=== PATIENT | female | born 1995 | race Caucasian/White ===

== ENCOUNTER 2024-08-23 15:14 | Emergency (ER) | payer BC ==
[2024-08-23 15:20] VITALS: TEMP 98.2
[2024-08-23] MEDS: KETOROLAC 15 MG/ML 1 ML VIAL IM STA (16:18)
--- NOTE | 2024-08-23 16:20 | ED ---
Abdominal Pain HPI - General Source: patient, RN notes reviewed, old records reviewed Mode of arrival: ambulatory Limitations: no limitations <Riky Noble - Last Filed: 08/23/24 19:02> <Chip Mancera - Last Filed: 08/23/24 23:55> - General Chief Complaint: Abdominal Pain Stated Complaint: Pelvic Pain Time Seen by Provider: 08/23/24 15:20 - History of Present Illness Initial Comments: 28-year-old female presents with complaints of abdominal/pelvic/vaginal pain. Of note patient has an extensive history of kidney stones requiring 3 lithotripsies in the last 7 years and accumulating a total of 7 stones over that time. Patient's pain started approximately a week ago which initially felt like some pelvic and vaginal pain at that time she noticed her IUD strings hanging out of her vagina and upon further investigation found that some of the IUD was sticking out of the cervix so decided to remove the IUD at that time. States she could not tell if she was having any vaginal spotting as she was on her period at that time. Reports after that she started having some difficulty with urination, stating she would have some burning sensation when she pees especially at the end of urination, and would also have some urgency. States she is also having some flank pain especially on the left. Earlier today with all of her symptoms still going on she decided to go to urgent care for further evaluation, states they did a UA there which showed blood in the urine but no bacteria. Reports they tried to do a pelvic exam but she was in so much pain so she could not tolerate it. Reports that she was then recommended by urgent care to come to the emergency department for further evaluation. (Riky Noble) - Related Data Previous Rx's Medication Instructions Recorded Ketorolac [Toradol] 10 mg PO Q6HR #12 tab 08/23/24 Tamsulosin [Flomax] 0.4 mg PO DAILY #5 cap 08/23/24 Allergies Allergy/AdvReac Type Severity Reaction Status Date / Time No Known Allergies Allergy Verified 08/23/24 15:20 Review of Systems ROS Other: All systems not noted in ROS Statement are negative. <Riky Noble - Last Filed: 08/23/24 19:02> ROS Other: All systems not noted in ROS Statement are negative. <Chip Mancera - Last Filed: 08/23/24 23:55> ROS Statement: Those systems with pertinent positive or pertinent negative responses have been documented in the HPI. Past Medical History Past Medical History: No Reported History History of Any Multi-Drug Resistant Organisms: None Reported Past Surgical History: Tonsillectomy Additional Past Surgical History / Comment(s): lithotripsy Past Psychological History: Anxiety, Depression Smoking Status: Never smoker Past Alcohol Use History: None Reported Past Drug Use History: None Reported <Riky Noble - Last Filed: 08/23/24 19:02> General Exam Limitations: no limitations <Riky Noble - Last Filed: 08/23/24 19:02> - General Exam Comments Initial Comments: GENERAL: In no apparent distress at the time of examination. Pleasant and cooperative. HEENT: Head is atraumatic, normocephalic. Pupils are equal, round, and reactive to light. Sclerae anicteric. Conjunctivae are clear. Mucus membranes of the mouth are moist. Neck is supple. RESPIRATORY: Clear to auscultation. No wheezes, rales, or rhonchi. No use of accessory muscles. Patient maintaining oxygen saturation greater than 92%. No chest wall tenderness is noted on palpation or with deep breathing. CARDIOVASCULAR: Regular rate and rhythm. S1 and S2 noted. No systolic or diastolic murmur auscultated. No JVD noted. No S3 or S4 noted. GASTROINTESTINAL: No distention noted. Abdomen soft and round. Normal active bowel sounds auscultated x 4 quadrants. No pain or tenderness noted upon palpation. INTEGUMENTARY: No cyanosis. No jaundice. No rashes noted. No cellulitis noted. EXTREMITIES: 2+ peripheral pulses. No evidence of peripheral edema. No calf tenderness noted. NEUROLOGIC: Cranial nerves II-XII intact. PSYCHIATRIC: Awake, alert, and oriented X 3. Appropriate affect. Intact judgement and insight. (Riky Noble) Course Vital Signs 08/23/24 08/23/24 08/23/24 15:15 16:20 20:22 Temperature 98.2 F 98.2 F Pulse Rate 63 64 89 Respiratory 18 16 18 Rate Blood Pressure 136/85 125/73 104/66 O2 Sat by Pulse 95 98 98 Oximetry Medical Decision Making - Lab Data Result diagrams: 08/23/24 16:05 08/23/24 16:05 <Riky Noble - Last Filed: 08/23/24 19:02> - Lab Data Result diagrams: 08/23/24 16:05 08/23/24 16:05 <Chip Mancera - Last Filed: 08/23/24 23:55> - Medical Decision Making Was pt. sent in by a medical professional or institution (, PA, FRINGING MACHINE OPERATOR, urgent care, hospital, or skilled nursing...) When possible be specific @ -Yes, urgent care. Did you speak to anyone other than the patient for history (EMS, parent, family, police, friend...)? What history was obtained from this source @ -No Did you review nursing and triage notes (agree or disagree)? Why? @ -I reviewed and agree with nursing and triage notes Were old charts reviewed (outside hosp., previous admission, EMS record, old EKG, old radiological studies, urgent care reports/EKG's, skilled nursing records)? Report findings @ -No old charts were reviewed Differential Diagnosis? @ -Differential Abdominal Pain Women: Appendicitis, Cholecystitis, diverticulosis, ischemic bowel, pancreatitis, hepatitis, UTI, gastroenteritis, AAA, incarcerated hernia, bowel obstruction, constipation, inflammatory bowel, hepatitis, peptic ulcer disease, splenic infarction, perforated viscus, vulvitis, ovarian torsion, PID, kidney stone, placenta abruption, this is not meant to be an all-inclusive list EKG interpreted by me (3pts min.). @ -As above X-rays interpreted by me (1pt min.). @ -None done CT interpreted by me (1pt min.). @ -Mild left hydroureteronephrosis with an obstructing 5 mm calculi at the uterovesical junction, right ovarian cystic lesion, cholelithiasis U/S interpreted by me (1pt. min.). @ -None done What testing was considered but not performed or refused? (CT, X-rays, U/S, labs)? Why? @ -None What meds were considered but not given or refused? Why? @ -None Did you discuss the management of the patient with other professionals (robert haynes i.e. , PA, FRINGING MACHINE OPERATOR, lab, RT, psych nurse, clinical social worker, account management assistant, teacher, safety patrol officer, case folder)? Give summary @ -No Was smoking cessation discussed for >3mins.? @ -No Was critical care preformed (if so, how long)? @ -No Were there social determinants of health that impacted care today? How? (Homelessness, low income, unemployed, alcoholism, drug addiction, transportation, low edu. Level, literacy, decrease access to med. care, custodial, rehab)? @ -No Was there de-escalation of care discussed even if they declined (Discuss DNR or withdrawal of care, Hospice)? DNR status @ -No What co-morbidities impacted this encounter? (DM, HTN, Smoking, COPD, CAD, Cancer, CVA, ARF, Chemo, Hep., AIDS, mental health diagnosis, sleep apnea, morbid obesity)? @ -None Was patient admitted / discharged? Hospital course, mention meds given and route, prescriptions, significant lab abnormalities, going to OR and other pertinent info. @ -Discharge, 28-year-old female presenting with complaints of abdominal and pelvic pain. Within the last week patient had removed her IUD which had been dislodged. Patient also has a significant history of kidney stones in the past. Patient was sent here from urgent care due to the symptoms she was experiencing and they not being able to do a pelvic exam and fully evaluate the patient. Patient underwent CT abdomen pelvis with contrast showing obstructing 5 mm calculi at the uterovesical junction on the left. Patient also underwent lab work which was within normal limits. A female provider was able to successfully perform a pelvic exam which showed no abnormalities. Patient is being discharged and advised to follow-up with her PCP, establish with urology, and establish with [employer]. Undiagnosed new problem with uncertain prognosis? @ -No Drug Therapy requiring intensive monitoring for toxicity (Heparin, Nitro, Insulin, Cardizem)? @ -No Were any procedures done? @ -No Diagnosis/symptom? @ -Nephrolithiasis Acute, or Chronic, or Acute on Chronic? @ -Acute on chronic Uncomplicated (without systemic symptoms) or Complicated (systemic symptoms)? @ -Default Side effects of treatment? @ -No Exacerbation, Progression, or Severe Exacerbation? @ -No Poses a threat to life or bodily function? How? (Chest pain, [place], [place], pneumonia, PE, COPD, DKA, ARF, appy, cholecystitis, CVA, Diverticulitis, Homicidal, Suicidal, threat to staff... and all critical care pts) @ -No (Riky Noble) I personally saw the patient and performed the critical portion of the service. I discussed the patient care with the resident. I directed management, care planning and final disposition of the patient. This includes, but not limited to, review of all lab work, radiological studies, EKG's, consultations, vital signs, and nursing notes. EKG interpreted by me (3pts min.) @None done X-Rays interpreted by me (1 pt min.) @None CT interpreted by me ( 1pt min.) @CT shows ureterolithiasis at 5 mm in size.. Mild left-sided hydronephrosis. Patient also has a right ovarian cystic lesion. U/S interpreted by me (1 pt min.) @None pelvic exam completed by assisting midlevel provider which was unremarkable. No discharge or bleeding. No obvious findings. No concern for STDs or STI. (Chip Mancera) - Lab Data Lab Results 08/23/24 08/23/24 08/23/24 Range/Units 16:02 16:05 16:05 WBC 9.10 (4.50-10.00) 10*3/uL RBC 4.59 (4.10-5.20) 10*6/uL Hgb 13.9 (12.0-15.0) g/dL Hct 41.1 (37.2-46.3) % MCV 89.5 (80.0-97.0) fL MCH 30.3 (27.0-32.0) pg MCHC 33.8 (32.0-37.0) g/dL Plt Count 305 (140-440) 10*3/uL MPV 10.6 (9.5-12.2) fL Immature Gran % (Auto) 0.2 % Neutrophils % 65.4 % Lymphocytes % 26.3 % Monocytes % 5.6 % Eosinophils % 2.3 % Basophils % 0.2 % Immature Gran # 0.02 (0.00-0.04) 10*3/uL Neutrophils # 5.95 (1.80-7.70) 10*3/uL Lymphocytes # 2.39 (0.90-5.00) 10*3/uL Monocytes # 0.51 (0.20-1.00) 10*3/uL Eosinophils # 0.21 (0.04-0.35) 10*3/uL Basophils # 0.02 (0.00-0.10) 10*3/uL Sodium 139 (137-145) mmol/L Potassium 4.4 (3.5-5.1) mmol/L Chloride 106 (98-107) mmol/L Carbon Dioxide 25 (22-30) mmol/L Anion Gap 8 mmol/L BUN 11 (7-17) mg/dL Creatinine 0.77 (0.52-1.04) mg/dL Est GFR (CKD-EPI)AfAm >90 (>60 ml/min/1.73 sqM) Est GFR (CKD-EPI)NonAf >90 (>60 ml/min/1.73 sqM) Glucose 97 (74-99) mg/dL Plasma Lactic Acid Khanh (0.7-2.0) mmol/L Calcium 9.6 (8.4-10.2) mg/dL Total Bilirubin 0.4 (0.2-1.3) mg/dL AST 38 H (14-36) U/L ALT 37 H (4-34) U/L Alkaline Phosphatase 77 (38-126) U/L Total Protein 7.4 (6.3-8.2) g/dL Albumin 4.5 (3.5-5.0) g/dL HCG, Qual Not Detected Urine Color Light Yellow Urine Appearance Clear (Clear) Urine pH 6.5 (5.0-8.0) Ur Specific [place] 1.016 (1.001-1.035) Urine Protein Negative (Negative) Urine Glucose (UA) Negative (Negative) Urine Ketones Negative (Negative) Urine Blood Trace H (Negative) Urine Nitrite Negative (Negative) Urine Bilirubin Negative (Negative) Urine Urobilinogen <2.0 (<2.0) mg/dL Ur Leukocyte Esterase Negative (Negative) Urine RBC 8 H (0-5) /hpf Urine WBC 4 (0-5) /hpf Ur Squamous Epith Cells <1 (0-4) /hpf Urine Mucus Rare H (None) /hpf 08/23/24 Range/Units 16:05 WBC (4.50-10.00) 10*3/uL RBC (4.10-5.20) 10*6/uL Hgb (12.0-15.0) g/dL Hct (37.2-46.3) % MCV (80.0-97.0) fL MCH (27.0-32.0) pg MCHC (32.0-37.0) g/dL Plt Count (140-440) 10*3/uL MPV (9.5-12.2) fL Immature Gran % (Auto) % Neutrophils % % Lymphocytes % % Monocytes % % Eosinophils % % Basophils % % Immature Gran # (0.00-0.04) 10*3/uL Neutrophils # (1.80-7.70) 10*3/uL Lymphocytes # (0.90-5.00) 10*3/uL Monocytes # (0.20-1.00) 10*3/uL Eosinophils # (0.04-0.35) 10*3/uL Basophils # (0.00-0.10) 10*3/uL Sodium (137-145) mmol/L Potassium (3.5-5.1) mmol/L Chloride (98-107) mmol/L Carbon Dioxide (22-30) mmol/L Anion Gap mmol/L BUN (7-17) mg/dL Creatinine (0.52-1.04) mg/dL Est GFR (CKD-EPI)AfAm (>60 ml/min/1.73 sqM) Est GFR (CKD-EPI)NonAf (>60 ml/min/1.73 sqM) Glucose (74-99) mg/dL Plasma Lactic Acid Khanh 0.8 (0.7-2.0) mmol/L Calcium (8.4-10.2) mg/dL Total Bilirubin (0.2-1.3) mg/dL AST (14-36) U/L ALT (4-34) U/L Alkaline Phosphatase (38-126) U/L Total Protein (6.3-8.2) g/dL Albumin (3.5-5.0) g/dL HCG, Qual Urine Color Urine Appearance (Clear) Urine pH (5.0-8.0) Ur Specific [place] (1.001-1.035) Urine Protein (Negative) Urine Glucose (UA) (Negative) Urine Ketones (Negative) Urine Blood (Negative) Urine Nitrite (Negative) Urine Bilirubin (Negative) Urine Urobilinogen (<2.0) mg/dL Ur Leukocyte Esterase (Negative) Urine RBC (0-5) /hpf Urine WBC (0-5) /hpf Ur Squamous Epith Cells (0-4) /hpf Urine Mucus (None) /hpf Disposition Is patient prescribed a controlled substance at d/c from ED?: No <Riky Noble - Last Filed: 08/23/24 19:02> Time of Disposition: 20:22 <Chip Mancera - Last Filed: 08/23/24 23:55> Clinical Impression: Calculus of kidney Disposition: HOME SELF-CARE Instructions (If sedation given, give patient instructions): Kidney Stones (ED) Prescriptions: Tamsulosin [Flomax] 0.4 mg PO DAILY #5 cap Ketorolac [Toradol] 10 mg PO Q6HR #12 tab Referrals: Nonstaff,Physician [Primary Care Provider] - 1-2 days Edd Schulz MD [STAFF PHYSICIAN] - 1-2 days Cindi Ignacio MD [STAFF PHYSICIAN] - 1-2 days
[2024-08-23 16:34] LABS: Appearance,Urine Clear (Clear); Bilirubin,Urine Negative (Negative); Blood,Urine Trace (Negative); Color,Urine Light Yellow; Glucose,Urine (UA) Negative (Negative); Ketones,Urine Negative (Negative); Leukocyte Esterase,Urine Negative (Negative); Mucus,Urine Rare /hpf; Nitrite,Urine Negative (Negative); PH, Urine 6.5 (5.0-8.0); Protein,Urine Negative (Negative); RBC,Urine 8 /hpf (0-5); Specific Gravity,Urine 1.016 (1.001-1.035); Squamous Epithelial Cell,Urine <1 /hpf (0-4); Urobilinogen,Urine <2.0 mg/dL (<2.0); WBC,Urine 4 /hpf (0-5)
[2024-08-23 16:37] LABS: Basophils # (A) 0.02 10*3/uL (0.00-0.10); Basophils % (A) 0.2 %; Eosinophils # (A) 0.21 10*3/uL (0.04-0.35); Eosinophils % (A) 2.3 %; HCT 41.1 % (37.2-46.3); HGB 13.9 g/dL (12.0-15.0); Lymphocytes # (A) 2.39 10*3/uL (0.90-5.00); Lymphocytes % (A) 26.3 %; MCH 30.3 pg (27.0-32.0); MCHC 33.8 g/dL (32.0-37.0); MCV 89.5 fL (80.0-97.0); Mean Platelet Volume 10.6 fL (9.5-12.2); Monocytes # (A) 0.51 10*3/uL (0.20-1.00); Monocytes % (A) 5.6 %; Neutrophils # (A) 5.95 10*3/uL (1.80-7.70); Neutrophils % (A) 65.4 %; Platelet Count 305 10*3/uL (140-440); RBC 4.59 10*6/uL (4.10-5.20); RDW 11.9 % (11.5-14.5)
[2024-08-23] MEDS: SODIUM CHLORIDE 0.9% 1,000 ML IV ONE (16:41)
[2024-08-23 16:43] LABS: HCG,Qualitative Serum Not Detected
[2024-08-23 16:45] LABS: ALT 37 U/L (4-34); AST 38 U/L (14-36); African American GFR (CKD) >90 (>60 ml/min/1.73 sqM); Albumin 4.5 g/dL (3.5-5.0); Alkaline Phosphatase 77 U/L (38-126); Anion Gap 8 mmol/L; Blood Urea Nitrogen 11 mg/dL (7-17); Calcium 9.6 mg/dL (8.4-10.2); Carbon Dioxide 25 mmol/L (22-30); Chloride 106 mmol/L (98-107); Glucose 97 mg/dL (74-99); Non-African American GFR(CKD) >90 (>60 ml/min/1.73 sqM); Potassium 4.4 mmol/L (3.5-5.1); Sodium 139 mmol/L (137-145); Total Bilirubin 0.4 mg/dL (0.2-1.3); Total Protein 7.4 g/dL (6.3-8.2)
--- NOTE | 2024-08-23 18:23 | CT ---
EXAMINATION TYPE: CT abdomen pelvis w con CT DLP: 803.2 mGycm, Automated exposure control for dose reduction was used. DATE OF EXAM: 08/23/2024 5:58 PM COMPARISON: None CLINICAL INDICATION:Female, 28 years old with history of Pelvic pain; pelvic pain TECHNIQUE: Standard CT of the abdomen and pelvis following the administration of 100 cc of Isovue 3 00 IV contrast material. Coronal and sagittal reformats were performed. FINDINGS: LOWER CHEST: Unremarkable ABDOMEN LIVER: Unremarkable GALLBLADDER AND BILE DUCTS: Cholelithiasis. No biliary ductal dilatation. PANCREAS: Unremarkable. SPLEEN: Unremarkable. ADRENAL GLANDS: Unremarkable. KIDNEYS AND URETERS: No right-sided hydronephrosis. Mild left hydroureteronephrosis with an obstructi ng 5 mm calculus at the ureterovesical junction. Couple nonobstructing right renal calculi with large st measuring up to 4 mm. Nonobstructing left renal lower pole 5 mm calculus. The kidneys enhance symm etrically. Contrast is demonstrated within both collecting systems and the right proximal ureter on t he delayed phase. Left retroaortic renal vein. PELVIS BLADDER: Incompletely distended but grossly unremarkable. REPRODUCTIVE: Anteverted uterus with follicular changes of the left ovary and right ovarian cystic le neela measuring up to 3.8 cm. ABDOMEN & PELVIS STOMACH AND BOWEL: Stomach and duodenum are unremarkable. No focal bowel wall thickening or surroundi ng inflammatory changes. The appendix is within normal limits. No evidence of bowel obstruction. PERITONEUM: No evidence of pneumoperitoneum or free fluid. VASCULATURE: No evidence of aortic aneurysm. MUSCULOSKELETAL: No acute osseous abnormalities LYMPH NODES: No evidence for lymphadenopathy. SOFT TISSUE/ABDOMINAL WALL: Unremarkable IMPRESSION: 1. Mild left hydroureteronephrosis with an obstructing 5 mm calculus at the ureterovesical junction. Additional nonobstructing bilateral renal calculi. 2. Right ovarian 3.8 cm cystic lesion. Could represent a dominant follicular cyst versus other etiolo gies. Consider further evaluation with ultrasound as clinically indicated. 3. Cholelithiasis. [facility], , 08/23/2024 6:21 PM
[2024-08-23 20:26] VITALS: BP 104/66; PULSE 89; RESP 18
== END 2024-08-23 20:26 | disposition home or self-care (01) ==
LOC: EC 15:14
DX: N13.2 Hydronephrosis with renal and ureteral calculous obstruction (principal)
CPT/HCPCS: 36415; 80053; 83605; 85025; 81001; 84703; 74177; 99284; 96360; 96372; J1885; Q9967

== ENCOUNTER → 2024-08-28 | Outpatient (CLI) | payer BC ==
--- NOTE | 2024-08-28 10:37 | XR ---
EXAMINATION TYPE: XR KUB DATE OF EXAM: 08/28/2024 10:26 AM COMPARISON: None. CLINICAL INDICATION: Female, 28 years old with history of N20.0 N20.1, TECHNIQUE: XR KUB view(s) obtained. FINDINGS: There is a normal bowel gas pattern. Fecal debris throughout the colon. Psoas margins are normal. No organomegaly is present. There is a 0.5 cm calcification at the inferior pole left kidney. A couple of punctate calcification s may be at the inferior pole right kidney. IMPRESSION: 1. Bilateral renal stones larger on the left measuring 0.5 cm per [facility], , 08/28/2024 10:34 AM
== END | disposition home or self-care (01) ==
LOC: RADXRMAIN 09:51
PROVIDERS: ATTEND Urology
DX: N20.2 Calculus of kidney with calculus of ureter (principal)
CPT/HCPCS: 74018

== ENCOUNTER 2024-10-03 17:16 | Emergency (ER) | payer BC ==
[2024-10-03 17:25] VITALS: RESP 18
--- NOTE | 2024-10-03 17:50 | ED ---
General Adult HPI - General Chief complaint: Recheck/Abnormal Lab/Rx Stated complaint: rabies exposure Time Seen by Provider: 10/03/24 17:31 Source: patient Mode of arrival: ambulatory Limitations: no limitations - History of Present Illness Initial comments: 29-year-old female here for rabies vaccination. Patient states that she and her family woke up with a bat flying around her bedroom earlier this morning. No known bites or scratches. They chased it out of the room and got it outside. Called the health department who recommended that they come for rabies vaccinations. - Related Data Previous Rx's Medication Instructions Recorded Ketorolac [Toradol] 10 mg PO Q6HR #12 tab 08/23/24 Tamsulosin [Flomax] 0.4 mg PO DAILY #5 cap 08/23/24 Allergies Allergy/AdvReac Type Severity Reaction Status Date / Time No Known Allergies Allergy Verified 10/03/24 17:25 Review of Systems ROS Statement: Those systems with pertinent positive or pertinent negative responses have been documented in the HPI. ROS Other: All systems not noted in ROS Statement are negative. Past Medical History Past Medical History: No Reported History History of Any Multi-Drug Resistant Organisms: None Reported Past Surgical History: Tonsillectomy Additional Past Surgical History / Comment(s): lithotripsy Past Psychological History: Anxiety, Depression Smoking Status: Never smoker Past Alcohol Use History: None Reported Past Drug Use History: None Reported General Exam Limitations: no limitations General appearance: alert, in no apparent distress Head exam: Present: atraumatic, normocephalic, normal inspection Eye exam: Present: normal appearance, EOMI Neck exam: Present: normal inspection. Absent: meningismus Respiratory exam: Absent: respiratory distress Cardiovascular Exam: Present: regular rate Neurological exam: Present: alert, oriented X3 Psychiatric exam: Present: normal affect, normal mood Skin exam: Present: normal color Course Vital Signs 10/03/24 17:22 Temperature 98.5 F Pulse Rate 67 Respiratory 18 Rate Blood Pressure 114/74 O2 Sat by Pulse 96 Oximetry Medical Decision Making - Medical Decision Making Was pt. sent in by a medical professional or institution (, PA, PRODUCT MANAGER FINANCIAL SERVICES, urgent care, hospital, or longterm...) When possible be specific @ -Health department Did you speak to anyone other than the patient for history (EMS, parent, family, police, friend...)? What history was obtained from this source @ -No Did you review nursing and triage notes (agree or disagree)? Why? @ -I reviewed and agree with nursing and triage notes Were old charts reviewed (outside hosp., previous admission, EMS record, old EKG, old radiological studies, urgent care reports/EKG's, longterm records)? Report findings @ -No old charts were reviewed Differential Diagnosis (chest pain, altered mental status, abdominal pain women, abdominal pain men, vaginal bleeding, weakness, fever, dyspnea, syncope, headache, dizziness, GI bleed, back pain, seizure, CVA, palpatations, mental hea lth, musculoskeletal)? @ -Not applicable EKG interpreted by me (3pts min.). @ -As above X-rays interpreted by me (1pt min.). @ -None done CT interpreted by me (1pt min.). @ -None done U/S interpreted by me (1pt. min.). @ -None done What testing was considered but not performed or refused? (CT, X-rays, U/S, labs)? Why? @ -None What meds were considered but not given or refused? Why? @ -None Did you discuss the management of the patient with other professionals (professionals i.e. , PA, PRODUCT MANAGER [employer]CIAL SERVICES, lab, RT, psych nurse, social science manager, newspaper photo editor, teacher, protective services officer, block and case maker)? Give summary @ -No Was smoking cessation discussed for >3mins.? @ -No Was critical care preformed (if so, how long)? @ -No Were there social determinants of health that impacted care today? How? (Homelessness, low income, unemployed, alcoholism, drug addiction, transportation, low edu. Level, literacy, decrease access to med. care, skilled nursing, rehab)? @ -No Was there de-escalation of care discussed even if they declined (Discuss DNR or withdrawal of care, Hospice)? DNR status @ -No What co-morbidities impacted this encounter? (DM, HTN, Smoking, COPD, CAD, Cancer, CVA, ARF, Chemo, Hep., AIDS, mental health diagnosis, sleep apnea, morbid obesity)? @ -None Was patient admitted / discharged? Hospital course, mention meds given and route, prescriptions, significant lab abnormalities, going to OR and other pertinent info. @ -29-year-old female here for rabies vaccination after waking up with a bat flying around her room. Vaccination and immunoglobulin administered. Provided with order for the remainder of doses 2 through 4. Follow-up with PCP and report back to ER with any new or worsening symptoms. My attending is Dr. Palafox Undiagnosed new problem with uncertain prognosis? @ -No Drug Therapy requiring intensive monitoring for toxicity (Heparin, Nitro, Insulin, Cardizem)? @ -No Were any procedures done? @ -No Diagnosis/symptom? @ -Rabies exposure Acute, or Chronic, or Acute on Chronic? @ -Acute Uncomplicated (without systemic symptoms) or Complicated (systemic symptoms)? @ -Uncomplicated Side effects of treatment? @ -No Exacerbation, Progression, or Severe Exacerbation? @ -No Poses a threat to life or bodily function? How? (Chest pain, [place], [place], pneumonia, PE, COPD, DKA, ARF, appy, cholecystitis, CVA, Diverticulitis, Homicidal, Suicidal, threat to staff... and all critical care pts) @ -Unlikely Disposition Clinical Impression: Rabies exposure Disposition: HOME SELF-CARE Condition: Good Instructions (If sedation given, give patient instructions): Rabies Vaccine (By injection), Rabies Immune Globulin (By injection), Rabies (ED) Additional Instructions: You will need 3 more doses of this vaccination on 10/06, 10/10, and 10/17. you were provided with a written order for the remainder of the doses. Follow-up with PCP and report back to ER with any new or worsening symptoms. Is patient prescribed a controlled substance at d/c from ED?: No Referrals: None,Stated [REFERRING] - 1-2 days Time of Disposition: 17:50
[2024-10-03] MEDS: RABIES IMM GLOB 300 UNIT/2 ML VIAL IM ONE (18:56)
[2024-10-03] MEDS: RABIES VACCINE (PCEC) 2.5 UNIT KIT IM ONE (18:59)
[2024-10-03 19:02] VITALS: BP 125/78; PULSE 80; TEMP 97.8
== END 2024-10-03 19:06 | disposition home or self-care (01) ==
LOC: EC 17:16
DX: Z20.3 Contact with and (suspected) exposure to rabies (principal); Z23 Encounter for immunization
CPT/HCPCS: 90377; 90471; 90675; 96372; 99283